=== PATIENT | female | born 1950 | race Caucasian/White ===

== ENCOUNTER 2017-07-03 11:36 | Emergency (ER) | payer OTHER, MEDICARE ==
[2017-07-03] MEDS ORDERED: OXYCODONE-ACETAMINOPHEN 5-325 MG TABLET PO ONE (12:13)
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
[2017-07-03] MEDS ORDERED: METHOCARBAMOL 500 MG TABLET PO ONE (13:21)
[2017-07-03] MEDS ORDERED: LIDOCAINE 5% (700 MG) TRANSDERMAL ADH..PATCH TP ONE (13:22)
[2017-07-03 14:36] VITALS: BP 139/88
== END 2017-07-03 14:36 | disposition home or self-care (01) ==
LOC: ER 11:36
DX: S16.1XXA Strain of muscle, fascia and tendon at neck level, initial encounter (principal); S39.012A Strain of muscle, fascia and tendon of lower back, initial encounter; V49.40XA Driver injured in collision with unspecified motor vehicles in traffic accident, initial encounter; R03.0 Elevated blood-pressure reading, without diagnosis of hypertension; R29.90 Unspecified symptoms and signs involving the nervous system; G89.29 Other chronic pain; Z88.8 Allergy status to other drugs, medicaments and biological substances
CPT/HCPCS: 70450; 72070; 72110; 72125; 99284

== ENCOUNTER → 2017-07-14 | Outpatient (CLI) | payer MEDICARE, OTHER | LOC: LAB 09:33 | PROVIDERS: ATTEND Internal Medicine Rheumatology | DX: M79.7 Fibromyalgia (principal) | CPT/HCPCS: 36415; 82550 ==